=== PATIENT | female | born 1995 | race Caucasian/White ===

== ENCOUNTER 2024-09-04 12:05 | Emergency (ER) | payer OTHER, SELFPAY ==
[2024-09-04 12:09] VITALS: BP 125/81; RESP 16; TEMP 36.9; O2SAT 98; BMI 21.4
--- NOTE | 2024-09-04 12:21 | ED_ITS ---
HPI - Abdominal Pain <Sharlene Castro PA-C - Last Filed: 09/04/24 15:29> General Chief Complaint: Abdominal Pain Stated Complaint: abd pain Time Seen by Provider: 09/04/24 12:20 History of Present Illness HPI narrative: Patient is a very pleasant 28-year-old female presents to the emergency room department today, by herself, drove herself. With an onset of umbilical discomfort and pain that started yesterday that now has radiated down to the right lower quadrant. With some mild nausea, no vomiting. Patient denies recent injury, trauma or fall. No recent upper respiratory symptoms, no recent fever, mild nausea, no vomiting, no diarrhea or constipation. 5/10 right lower quadrant abdominal discomfort increasing pain with coughing, moving, sitting or raising of the legs, and palpation to the right lower quadrant. Decrease in discomfort with rest and lying flat. No treatment prior to being seen here in the emergency department, the patient has not taken anything for pain. No back pain, no urinary frequency, urgency or painful urination. Has had 2 normal vaginal , no intra-abdominal surgery, no major medical problems. Recently had her flu shot last Saturday, no recent COVID shot or booster, no recent Pneumovax. Offered pain medication refused currently not nauseated, offered antinausea medication refused Related Data Allergies Allergy/AdvReac Type Severity Reaction Status Date / Time amoxicillin AdvReac Verified 09/04/24 12:09 Review of Systems <Sharlene Castro PA-C - Last Filed: 09/04/24 15:29> Review of Systems Narrative: Negative except as above Gastrointestinal Comments: Nausea, initial umbilical pain that started yesterday, now radiating into the right lower quadrant. Exam <Sharlene Castro PA-C - Last Filed: 09/04/24 15:29> Initial Vital Signs Initial Vital Signs: Vital Signs Temperature 98.5 F 09/04/24 12:09 Respiratory Rate 16 09/04/24 12:09 Blood Pressure 125/81 09/04/24 12:09 Pulse Oximetry 98 09/04/24 12:09 Oxygen Delivery Method Room Air 09/04/24 12:09 Reviewed Const General: cooperative, healthy appearing, comfortable, well developed, well groomed, No acute distress, No in distress, No anxious, No ill appearing and No intoxicated appearing Nutritional Appearance: average body habitus and well nourished Eyes General: Yes appearance normal, both eyes and all related structures Pupils: PERRL EOM: EOM intact bilaterally Resp Auscultation: clear to auscultation bilaterally, no crackles, no rales, no rhonchi, no wheezes and no vesicular sounds Cardio Rate: regular rate Rhythm: regular rhythm Heart Sounds: S1 normal, S2 normal, no click, no gallops, no murmurs and no rubs Pulses: radial pulses present Other: Rate 72 beats per minute GI Inspection: normal to inspection, no edema, non-distended and no obesity Palpation: soft, No no hepatosplenomegaly, No firm, No guarding, No rigid and tender (Umbilical right lower quadrant) Auscultation: hypoactive bowel sounds Other: Rebound tenderness in the right lower quadrant, Positive blumburgs sign/ Mcburneys Pain with straight leg Skin Other: Warm pink and dry Neuro General: patient alert, patient awake, patient oriented x3, oriented and gait normal Cranial Nerves: CN's II-XI intact bilaterally and PERRL Cognition: normal cognition Speech: speech normal Gait: normal gait Extrem Other: Range of motion, strength, pulses, cap refill preserved in the upper and lower extremities Psych Other: Appearance, mental status, speech, movement, mood, affect, attitude, thought process, judgment are all within normal limits. <Claudio Nascimento MD - Last Filed: 09/15/24 18:37> Initial Vital Signs Initial Vital Signs: Vital Signs Temperature 98.5 F 09/04/24 12:09 Respiratory Rate 16 09/04/24 12:09 Blood Pressure 125/81 09/04/24 12:09 Pulse Oximetry 98 09/04/24 12:09 Oxygen Delivery Method Room Air 09/04/24 12:09 Scores <Sharlene Castro PA-C - Last Filed: 09/04/24 15:29> GCS Citation: 15 Course <Sharlene Castro PA-C - Last Filed: 09/04/24 15:29> Orders Ordered: ED Orders 09/04/24 12:34 CT abdomen pelvis w con Stat 09/04/24 12:45 CBC Auto Diff [Complete Blood Count AUTO DIFF] Stat CMP [Comprehensive Metabolic Panel] Stat Lipase Stat 09/04/24 13:23 US abdomen limited Stat Reevaluation(s) Reevaluation #1: Patient offered pain medication, patient offered antinausea medication, patient refused Vital Signs Vital signs: Vital Signs - 8 hr 09/04/24 12:09 09/04/24 15:08 Temperature 98.5 F Pulse Rate 78 Respiratory Rate 16 18 Blood Pressure 125/81 128/86 Pulse Oximetry 98 100 Oxygen Delivery Method Room Air Room Air Reviewed <Claudio Nascimento MD - Last Filed: 09/15/24 18:37> Orders Ordered: ED Orders 09/04/24 12:34 CT abdomen pelvis w con Stat 09/04/24 12:45 CBC Auto Diff [Complete Blood Count AUTO DIFF] Stat CMP [Comprehensive Metabolic Panel] Stat Lipase Stat 09/04/24 13:23 US abdomen limited Stat Vital Signs Vital signs: Vital Signs - 8 hr 09/04/24 12:09 09/04/24 15:08 Temperature 98.5 F Pulse Rate 78 Respiratory Rate 16 18 Blood Pressure 125/81 128/86 Pulse Oximetry 98 100 Oxygen Delivery Method Room Air Room Air MDM - Abdominal Pain <Sharlene Castro PA-C - Last Filed: 09/04/24 15:29> Lab Data Lab results narrative: Urine test negative Urine dipstick is negative for infection, negative for blood 09/04/24 12:45 09/04/24 12:45 Labs: Lab Results 09/04/24 Range/Units 12:45 WBC 7.1 (4.5-11.0) X10^3/uL RBC 4.23 (4.0-5.2) X10^6/uL Hgb 13.2 (12.0-16.0) g/dL Hct 39.9 (36-46) % MCV 94.3 (80-100) fL MCH 31.2 (26-34) PG MCHC 33.1 (30-36) % RDW 13.3 (11.6-14.8) % Plt Count 191 (150-400) X10^3/uL Neut % (Auto) 61.8 (50-75) % Lymph % (Auto) 26.0 (25-40) % Dyer % (Auto) 9.0 (3-14) % Eos % (Auto) 2.5 (2-4) % Baso % (Auto) 0.7 (0-2) % Neut # (Auto) 4400 (1996-3585) /uL Lymph # (Auto) 1800 (8383-6357) /uL Dyer # (Auto) 600 (0-900) /uL Eos # (Auto) 200 (0-450) /uL Baso # (Auto) 0 (0-100) /uL Sodium 137 (137-145) mmol/L Potassium 3.8 (3.4-5.1) mmol/L Chloride 104 (98-107) mmol/L Carbon Dioxide 26 (22-32) mmol/L BUN 13 (7-17) mg/dL Creatinine 0.62 (0.52-1.04) mg/dL Estimated GFR > 60 (>60) mL/min BUN/Creatinine Ratio 21.0 (6-22) Glucose 94 (70-100) mg/dL Calcium 9.3 (8.4-10.2) mg/dL Total Bilirubin 0.5 (0.2-1.3) mg/dL AST 26 (14-36) IU/L ALT 20 (<35) IU/L Alkaline Phosphatase 47 (38-126) U/L Total Protein 7.4 (6.3-8.2) g/dL Albumin 4.6 (3.5-5.0) g/dL Globulin 2.8 (1.7-4.1) g/dL Albumin/Globulin Ratio 1.6 (1.0-2.8) Lipase 69 (23-300) U/L Point of care testing: Point of Care Testing Test Results Negative Urine Dip Bedside Urine Glucose Negative Bedside Urine Bilirubin - Negative Bedside Urine Ketone - Negative Urine Specific [place] 1.010 Bedside Urine Occult Blood - Negative Bedside Urine pH 7.0 Bedside Urine Protein - Negative Bedside Urine Urobilinogen - Negative Bedside Urine Nitrite - Negative Bedside Urine Leukocytes - Negative Esterase Imaging Data US - abdomen: Radiologist's Impression: [address] [address] Ultrasound Report Signed Patient: Indigo Campos MR#: [id number] : 1995 Acct:[id number] Age/Sex: 28 / F Date of Service: 09/04/24 Loc: ED Accession Number: [id number] Procedure: US abdomen limited Ordering Provider: Sharlene Castro PA-C PROCEDURE: US ABDOMEN LIMITED INDICATIONS: Rebound tenderness RLQ TECHNIQUE: Real-time focused scanning was performed of the abdomen with attention to the appendix, with image documentation. COMPARISON: None. FINDINGS: Appendix visualization: Appendix is not visualized Appendix measurements: Unable to assess Associated findings: Echogenic fat: Absent Appendiceal compressibility: Unable to assess Appendicoliths: Unable to assess Nearby free fluid: Small amount of simple fluid is seen. No complex appearing fluid. Lymphadenopathy: Absent Tenderness on exam: Mild tendinous is noted. IMPRESSION: Appendix is not visualized. No definite secondary sonographic evidence of acute appendicitis is seen. Dictated by: Oliverio Mosley M.D. on 09/04/2024 at 15:11 Approved by: Oliverio Mosley M.D. on 09/04/2024 at 15:11 [facility] Narrative Medical decision making narrative: 28-year-old female onset of umbilical pain started yesterday evening, now radiating to the right lower quadrant. No intra-abdominal surgeries, normal vaginal x2. No recent injury trauma fall, patient has rebound tenderness in the right lower quadrant, some nausea, positive straight leg, pain with coughing, pain with bending, pain with movement. Urine is negative for infection or blood or worrisome for kidney stone test is negative IV will be established CBC normal CMP normal Lipase normal NPO CT abdomen and pelvis with IV contrast rule out any intra-abdominal abnormality Looking for acute appendicitis or peritonitis, or inflammation around the appendix. Unfortunately the CT scan was not able to appreciate the appendix Unfortunately the ultrasound also was not able to appreciate the appendix Spoke with the radiologist due to the fact the patient has a large amount of stool, the radiologist was unable to visualize her appendix has suggestion was an ultrasound limited to evaluate for the appendix or have the patient drink a lot of water and repeat the CT in a while. I have decided to do an ultrasound to evaluate for acute appendicitis. Currently her lab work is completely all normal low suspicion for acute appendicitis however I need to at least be able to evaluate the appendix. Currently at this time the patient has been offered pain medication she refused, she has been offered antinausea medication she refused. Spoke with the attending and let the attending know that I have evaluated the patient, currently at this time I have discussed with the patient the findings of her workup, currently at this time the patient has decided she would like to be discharged home. We have discussed her findings, my feelings on her workup, reasons to present back to the emergency department, we have talked about [id number] supportive therapy as well for her symptoms. And reasons to present back to the emergency room department. Low threshold to return back for evaluation for possible appendicitis. Differential diagnosis; acute cholecystitis, acute cholelithiasis, small-bowel obstruction, diverticulitis, diverticulosis, UTI, pyelonephritis, kidney stone, ovarian cyst, acute appendicitis, no intra-abdominal abnormalities noted on CT scan unknown cause of intra-abdominal pain. <Claudio Nascimento MD - Last Filed: 09/15/24 18:37> Lab Data Labs: Lab Results 09/04/24 Range/Units 12:45 WBC 7.1 (4.5-11.0) X10^3/uL RBC 4.23 (4.0-5.2) X10^6/uL Hgb 13.2 (12.0-16.0) g/dL Hct 39.9 (36-46) % MCV 94.3 (80-100) fL MCH 31.2 (26-34) PG MCHC 33.1 (30-36) % RDW 13.3 (11.6-14.8) % Plt Count 191 (150-400) X10^3/uL Neut % (Auto) 61.8 (50-75) % Lymph % (Auto) 26.0 (25-40) % Dyer % (Auto) 9.0 (3-14) % Eos % (Auto) 2.5 (2-4) % Baso % (Auto) 0.7 (0-2) % Neut # (Auto) 4400 (8564-5131) /uL Lymph # (Auto) 1800 (3539-0604) /uL Dyer # (Auto) 600 (0-900) /uL Eos # (Auto) 200 (0-450) /uL Baso # (Auto) 0 (0-100) /uL Sodium 137 (137-145) mmol/L Potassium 3.8 (3.4-5.1) mmol/L Chloride 104 (98-107) mmol/L Carbon Dioxide 26 (22-32) mmol/L BUN 13 (7-17) mg/dL Creatinine 0.62 (0.52-1.04) mg/dL Estimated GFR > 60 (>60) mL/min BUN/Creatinine Ratio 21.0 (6-22) Glucose 94 (70-100) mg/dL Calcium 9.3 (8.4-10.2) mg/dL Total Bilirubin 0.5 (0.2-1.3) mg/dL AST 26 (14-36) IU/L ALT 20 (<35) IU/L Alkaline Phosphatase 47 (38-126) U/L Total Protein 7.4 (6.3-8.2) g/dL Albumin 4.6 (3.5-5.0) g/dL Globulin 2.8 (1.7-4.1) g/dL Albumin/Globulin Ratio 1.6 (1.0-2.8) Lipase 69 (23-300) U/L Point of care testing: Point of Care Testing Test Results Negative Urine Dip Bedside Urine Glucose Negative Bedside Urine Bilirubin - Negative Bedside Urine Ketone - Negative Urine Specific [place] 1.010 Bedside Urine Occult Blood - Negative Bedside Urine pH 7.0 Bedside Urine Protein - Negative Bedside Urine Urobilinogen - Negative Bedside Urine Nitrite - Negative Bedside Urine Leukocytes - Negative Esterase Discharge Plan Departure Patient Disposition: Home Clinical Impression: Abdominal pain Qualifiers: Abdominal location: right lower quadrant Qualified Code(s): R10.31 - Right lower quadrant pain Activity Restrictions/Additional Instructions: Unfortunately the CT scan did not and was unable to recognize if you have acute appendicitis Unfortunately the ultrasound also was unable to localize or see your appendix However, I think it is reassuring that all of your lab work is completely normal, you do not have a white count, you are not anemic, you do not need a blood transfusion. Your electrolytes, your renal function, your nutritional values, your liver enzymes, your lipase are all normal. Your urine was negative for infection, blood, low suspicion for kidney stone or kidney infection or urinary tract infection Your test was normal Currently what we have talked about and decided it was that your currently going to go home, went to monitor your symptoms. Monitor your nausea, your pain, monitor for fever, weakness, dizziness, We talked about provocative movements you can do the straight leg, internal external rotation, stretching the psoas muscle that is associated with signs and symptoms of acute appendicitis. Pain with jumping that causes irritation to the psoas muscle, rebound tenderness, worsening pain in the umbilical area, worsening nausea, vomiting, changes in your bowel movements. These are all concerning. My suggestion is that you try [id number] Tylenol, ibuprofen for discomfort, heating pad, warm water bottle on the abdomen, you can try topical preparations, arnica, Biofreeze, lidocaine, Salonpas, diclofenac all of these can give localize relief. Trinity diet, plenty of fluids, Upset stomach you can try [id number] Pepto, Pepto-Bismol, Pepcid, Maalox, Zantac, Cintia-[place]. Low suspicion and low threshold to return back to the emergency department if things are not improving, or worsening. Stand Alone Forms: Patient Portal/API ED Sign-out <Claudio Nascimento MD - Last Filed: 09/15/24 18:37> Cosign ED Attending Cosignature Attestation: I was immediately available in the department for consultation. ?This documentation has been reviewed and I agree with assessment and plan. Supervised by Caludio Nascimento MD
--- NOTE | 2024-09-04 12:34 | DI.CT.S_ITS ---
PROCEDURE: CT ABDOMEN PELVIS W CON INDICATIONS: rlq pain TECHNIQUE: After the administration of intravenous contrast, axial sections acquired from the lung bases to the pubic symphysis. Coronal and sagittal reformats were performed. For radiation dose reduction, the following was used: automated exposure control, adjustment of mA and/or kV according to patient size. COMPARISON: None. FINDINGS: Image quality: Diagnostic. Lower Chest: No significant findings. ABDOMEN: Liver: No solid mass. Gallbladder: No radiopaque gallstones or wall thickening. Biliary ducts: No biliary dilation. Pancreas: No ductal dilation. Spleen: Size is within normal limits. Adrenal Glands: No adrenal nodules. Kidneys and Ureters: No hydronephrosis. No solid mass. No complex renal cystic lesion which requires follow up. Stomach and Bowel: Normal colonic caliber, without significant wall thickening. The appendix is not identified. Cannot exclude acute appendicitis. There is paucity of intra-abdominal fat and there is no oral contrast present. Peritoneum: No abnormal intraperitoneal fluid. No free air. Ventral Wall: No significant ventral hernia. Abdominal Nodes: No retroperitoneal or mesenteric adenopathy by size criteria. Vessels: Aorta and inferior vena cava are normal in size. PELVIS: Pelvic Organs: Unremarkable. Bladder: No bladder wall thickening, accounting for underdistention. Pelvic Nodes: No enlarged lymph nodes. Miscellaneous: No inguinal hernias are seen. Bones: No aggressive osseous abnormality. IMPRESSION: Appendix not identified. Cannot exclude acute appendicitis. There is a small amount of fluid present in the pelvis. No acute findings noted. Comment: If clinically continue to suspect acute appendicitis, consider appendiceal ultrasound or repeat study with IV and oral contrast. Comment: Findings were discussed with the referring provider at the time of study dictation. Dictated by: Altaf Mcneil M.D. on 09/04/2024 at 13:10 Approved by: Altaf Mcneil M.D. on 09/04/2024 at 13:44
[2024-09-04 12:53] LABS: Add Manual Diff / Slide Review NO; Basophils Absolute Auto 0 /uL (0-100); Basophils Percent Auto 0.7 % (0-2); Eosinophils Absolute Auto 200 /uL (0-450); Eosinophils Percent Auto 2.5 % (2-4); Hematocrit 39.9 % (36-46); Hemoglobin 13.2 g/dL (12.0-16.0); Lymphocytes Absolute Auto 1800 /uL (1100-4500); Mean Corpuscular HGB Conc 33.1 % (30-36); Mean Corpuscular Hemoglobin 31.2 PG (26-34); Mean Corpuscular Volume 94.3 fL (80-100); Monocytes Absolute Auto 600 /uL (0-900); Neutrophils Absolute Auto 4400 /uL (1500-7000); Neutrophils Percent Auto 61.8 % (50-75); Platelet Count 191 X10^3/uL (150-400); Red Blood Cell Count 4.23 X10^6/uL (4.0-5.2); Red Cell Distribution Width 13.3 % (11.6-14.8); White Blood Cell Count 7.1 X10^3/uL (4.5-11.0)
[2024-09-04 13:03] LABS: Alanine Aminotransferase 20 IU/L (<35); Albumin 4.6 g/dL (3.5-5.0); Albumin Globulin Ratio 1.6 (1.0-2.8); Alkaline Phosphatase 47 U/L (38-126); Aspartate Aminotransferase 26 IU/L (14-36); Bilirubin Total 0.5 mg/dL (0.2-1.3); Blood Urea Nitrogen 13 mg/dL (7-17); Calcium 9.3 mg/dL (8.4-10.2); Carbon Dioxide 26 mmol/L (22-32); Chloride 104 mmol/L (98-107); Estimated Glomerular Filt Rate > 60 mL/min (>60); Globulin 2.8 g/dL (1.7-4.1); Glucose 94 mg/dL (70-100); HEMOLYSIS < 15 (0-50); Lipase 69 U/L (23-300); Potassium 3.8 mmol/L (3.4-5.1); Sodium 137 mmol/L (137-145); Total Protein 7.4 g/dL (6.3-8.2)
--- NOTE | 2024-09-04 13:23 | DI.US.S_ITS ---
PROCEDURE: US ABDOMEN LIMITED INDICATIONS: Rebound tenderness RLQ TECHNIQUE: Real-time focused scanning was performed of the abdomen with attention to the appendix, with image documentation. COMPARISON: None. FINDINGS: Appendix visualization: Appendix is not visualized Appendix measurements: Unable to assess Associated findings: Echogenic fat: Absent Appendiceal compressibility: Unable to assess Appendicoliths: Unable to assess Nearby free fluid: Small amount of simple fluid is seen. No complex appearing fluid. Lymphadenopathy: Absent Tenderness on exam: Mild tendinous is noted. IMPRESSION: Appendix is not visualized. No definite secondary sonographic evidence of acute appendicitis is seen. Dictated by: Oliverio Mosley M.D. on 09/04/2024 at 15:11 Approved by: Oliverio Mosley M.D. on 09/04/2024 at 15:11
[2024-09-04 15:08] VITALS: BP 128/86; PULSE 78; RESP 18; O2SAT 100
== END 2024-09-04 15:41 | disposition home or self-care (01) ==
PROVIDERS: Emergency Provider Physician Assistant
DX: R10.31 Right lower quadrant pain (principal); R11.0 Nausea
CPT/HCPCS: 36415; 74177; 76705; 80053; 81003; 81025; 83690; 85025; 99284; Q9967

== ENCOUNTER 2025-01-22 10:54 | Emergency (ER) | payer OTHER, SELFPAY ==
[2025-01-22 11:04] VITALS: BP 124/76; PULSE 85; RESP 13; TEMP 37.2; O2SAT 100; BMI 22.0
[2025-01-22 11:29] LABS: Add Manual Diff / Slide Review NO; Basophils Absolute Auto 0 /uL (0-100); Basophils Percent Auto 0.7 % (0-2); Eosinophils Absolute Auto 200 /uL (0-450); Eosinophils Percent Auto 2.6 % (2-4); Hemoglobin 13.6 g/dL (12.0-16.0); Lymphocytes Absolute Auto 1300 /uL (1100-4500); Lymphocytes Percent Auto 21.4 % (25-40); Mean Corpuscular HGB Conc 33.1 % (30-36); Mean Corpuscular Hemoglobin 31.4 PG (26-34); Mean Corpuscular Volume 94.9 fL (80-100); Monocytes Absolute Auto 500 /uL (0-900); Monocytes Percent Auto 8.1 % (3-14); Neutrophils Absolute Auto 4200 /uL (1500-7000); Neutrophils Percent Auto 67.2 % (50-75); Platelet Count 197 X10^3/uL (150-400); Red Blood Cell Count 4.32 X10^6/uL (4.0-5.2); Red Cell Distribution Width 13.2 % (11.6-14.8); White Blood Cell Count 6.2 X10^3/uL (4.5-11.0)
[2025-01-22 11:37] LABS: Prothrombin Time 11.4 SECONDS (9.4-12.5)
[2025-01-22 11:40] LABS: PTT Partial Thromboplastin Tim 36 SECONDS (25.1-36.5)
[2025-01-22 11:43] LABS: BUN Creatinine Ratio 19.4 (6-22); Blood Urea Nitrogen 13 mg/dL (7-17); Calcium 9.6 mg/dL (8.4-10.2); Carbon Dioxide 27 mmol/L (22-32); Chloride 104 mmol/L (98-107); Estimated Glomerular Filt Rate > 60 mL/min (>60); Glucose 81 mg/dL (70-100); HEMOLYSIS < 15 (0-50); Potassium 4.6 mmol/L (3.4-5.1); Sodium 139 mmol/L (137-145)
[2025-01-22 12:15] LABS: Bacteria Urine Occasional (0-1); Culture Indicated Urine Cult Not Indicated; RBC Urine 1-5/HPF (0-5/HPF); Squamous Epithelial Cell Urine 0-1 /HPF (0-5/HPF); Urine Volume 10mL (spun); WBC Urine 0-1/HPF (0-5/HPF)
--- NOTE | 2025-01-22 12:18 | ED_ITS ---
HPI - Female Genitourinary <Laurie Browning PA-C - Last Filed: 01/22/25 14:43> General Chief complaint: Vaginal Bleeding Stated complaint: Heavy, Bleeding , Cramping Time Seen by Provider: 01/22/25 11:17 Source: patient Mode of arrival: Ambulatory History of Present Illness HPI Narrative: Ms. Campos is a very pleasant 29-year-old female with no reported past medical history, 2 prior vaginal deliveries, who presents to the emergency department for heavy menstrual bleeding since last night. Patient states ever since she was 10 she has had regular, light periods. In November she had a day on her menstrual cycle with extremely heavy bleeding and passing large clots which she showed me pictures of that were the size of her hand. Her period was normal and light in December however yesterday her regular menstrual periods started again and she had extremely heavy bleeding and clots this morning causing her to change a tampon every 30 minutes. This prompted her emergency department arrival. However at this time she states the bleeding has stopped and it is very light. While she was bleeding earlier today she did feel dizzy. She denies some lower abdominal burning type pain associated with the bleeding. She is and is not concerned for sexually transmitted infections or as her does have a vasectomy. She denies any prior abdominal surgeries, no fevers no chills, no upper abdominal pain dysuria diarrhea or constipation or other concerns. She took Tylenol prior to arrival. Related Data Previous Rx's Medication Instructions Recorded naproxen 500 mg tablet 500 mg PO BID PRN pain #30 tabs 01/22/25 Allergies Allergy/AdvReac Type Severity Reaction Status Date / Time amoxicillin AdvReac Verified 09/04/24 12:09 Review of Systems <Laurie Browning PA-C - Last Filed: 01/22/25 14:43> Review of Systems ROS Unobtainable: All systems reviewed & are unremarkable except as noted in HPI and below Exam <Laurie Browning PA-C - Last Filed: 01/22/25 14:43> Narrative Exam Narrative: GENERAL: 29 year old patient appears stated age. Well-developed patient, in no acute distress. HEAD: Atraumatic. Normocephalic. NECK: Trachea midline. Cervical ROM intact. CARDIOVASCULAR: Regular rate and rhythm. RESPIRATORY: ?Nonlabored respirations. ?Speaking in clear, full sentences. ?Clear to auscultation. Breath sounds equal bilaterally. No wheezes, rales, or rhonchi. ? GASTROINTESTINAL: Abdomen soft, non-tender, nondistended. Normal bowel sounds. PELVIC: Patient gave verbal consent for pelvic exam. 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 Patient has normal external genitalia, less than 1 large swab of blood present in the vaginal vault with no bleeding after bearing down. No tenderness on bimanual exam. EXTREMITIES: No edema or joint tenderness. BACK: Nontender without deformity or crepitance. No flank tenderness. NEURO: AOx3. ?Clear speech. ?Moves all 4 extremities appropriately. SKIN: No rash or erythema of visible areas Initial Vital Signs Initial Vital Signs: Vital Signs Temperature 98.9 F 01/22/25 11:04 Pulse Rate 85 01/22/25 11:04 Respiratory Rate 13 01/22/25 11:04 Blood Pressure 124/76 01/22/25 11:04 Pulse Oximetry 100 01/22/25 11:04 Oxygen Delivery Method Room Air 01/22/25 11:04 <DO Michelle Ware Last Filed: 01/23/25 22:11> Initial Vital Signs Initial Vital Signs: Vital Signs Temperature 98.9 F 01/22/25 11:04 Pulse Rate 85 01/22/25 11:04 Respiratory Rate 13 01/22/25 11:04 Blood Pressure 124/76 01/22/25 11:04 Pulse Oximetry 100 01/22/25 11:04 Oxygen Delivery Method Room Air 01/22/25 11:04 Course <Laurie Browning PA-C - Last Filed: 01/22/25 14:43> Orders Ordered: ED Orders 01/22/25 11:09 Urine Microscopic Stat 01/22/25 11:17 Basic Metabolic Panel Stat Complete Blood Count AUTO DIFF Stat PT [Prothrombin Time INR] Stat PTT Partial Thromboplastin Giovanni Stat Type and Screen Stat 01/22/25 12:30 US pelvic complete Stat Vital Signs Vital signs: Vital Signs - 8 hr 01/22/25 11:04 01/22/25 14:27 Temperature 98.9 F Pulse Rate 85 81 Respiratory Rate 13 14 Blood Pressure 124/76 121/73 Pulse Oximetry 100 100 Oxygen Delivery Method Room Air Room Air <DO Michelle Ware Last Filed: 01/23/25 22:11> Orders Ordered: ED Orders 01/22/25 11:09 Urine Microscopic Stat 01/22/25 11:17 Basic Metabolic Panel Stat Complete Blood Count AUTO DIFF Stat PT [Prothrombin Time INR] Stat PTT Partial Thromboplastin Giovanni Stat Type and Screen Stat 01/22/25 12:30 US pelvic complete Stat Vital Signs Vital signs: Vital Signs - 8 hr 01/22/25 11:04 01/22/25 14:27 Temperature 98.9 F Pulse Rate 85 81 Respiratory Rate 13 14 Blood Pressure 124/76 121/73 Pulse Oximetry 100 100 Oxygen Delivery Method Room Air Room Air MDM - Female Genitourinary <Laurie Browning PA-C - Last Filed: 01/22/25 14:43> Medical Records Attestation: I reviewed the patient's medical records. Medical records narrative: Prior abdominal pain emergency department visit 09/04/2024. Lab Data 01/22/25 11:17 01/22/25 11:17 Labs: Lab Results 01/22/25 01/22/25 Range/Units 11:09 11:17 WBC 6.2 (4.5-11.0) X10^3/uL RBC 4.32 (4.0-5.2) X10^6/uL Hgb 13.6 (12.0-16.0) g/dL Hct 41.0 (36-46) % MCV 94.9 (80-100) fL MCH 31.4 (26-34) PG MCHC 33.1 (30-36) % RDW 13.2 (11.6-14.8) % Plt Count 197 (150-400) X10^3/uL Neut % (Auto) 67.2 (50-75) % Lymph % (Auto) 21.4 L (25-40) % [place] % (Auto) 8.1 (3-14) % Eos % (Auto) 2.6 (2-4) % Baso % (Auto) 0.7 (0-2) % Neut # (Auto) 4200 (7119-5831) /uL Lymph # (Auto) 1300 (1185-0643) /uL [place] # (Auto) 500 (0-900) /uL Eos # (Auto) 200 (0-450) /uL Baso # (Auto) 0 (0-100) /uL PT 11.4 (9.4-12.5) SECONDS INR 1.0 (0.9-1.3) APTT 36 (25.1-36.5) SECONDS Sodium 139 (137-145) mmol/L Potassium 4.6 (3.4-5.1) mmol/L Chloride 104 (98-107) mmol/L Carbon Dioxide 27 (22-32) mmol/L BUN 13 (7-17) mg/dL Creatinine 0.67 (0.52-1.04) mg/dL Estimated GFR > 60 (>60) mL/min BUN/Creatinine Ratio 19.4 (6-22) Glucose 81 (70-100) mg/dL Calcium 9.6 (8.4-10.2) mg/dL Urine RBC 1-5/hpf (0-5/HPF) Urine WBC 0-1/hpf (0-5/HPF) Ur Squamous Epith Cells 0-1 /hpf (0-5/HPF) Urine Bacteria Occasional (0-1) (None) Ur Culture Indicated? Cult not indicated Vol Urine Centrifuged 10ml (spun) Blood Type O Negative Antibody Screen Negative Point of Care Testing Test Results Negative Urine Dip Bedside Urine Glucose Negative Bedside Urine Bilirubin - Negative Bedside Urine Ketone - Negative Urine Specific [place] 1.005 Bedside Urine Occult Blood + Bedside Urine pH 6.0 Bedside Urine Protein - Negative Bedside Urine Urobilinogen - Negative Bedside Urine Nitrite - Negative Bedside Urine Leukocytes - Negative Esterase Imaging Data pelvic US: Radiologist's Impression: PROCEDURE: US PELVIC COMPLETE INDICATIONS: heavy menstrual bleeding and lower abd pain TECHNIQUE: Real-time scanning was performed of the pelvic organs, with image documentation. Additional endovaginal scanning was necessary due to incomplete visualization of the adnexal and endometrial structures by transabdominal scanning. COMPARISON: None. FINDINGS: Uterus: Uterus is anteverted and normal in size at 8.3 x 6.2 x 4.8 cm. The myometrium is homogeneous. The endometrium measures 6.5 mm combined thickness. No fibroids Ovaries: The right ovary measures 3.0 x 2.0 x 1.9 cm, with a calculated ovarian volume of 6.0 cc. The left ovary measures 3.0 x 2.2 x 1.6 cm, with a calculated ovarian volume of 5.5 cc. The ovaries have a normal sonographic appearance. Less than 12 follicles can be seen in each ovary. No adnexal masses are seen. There is intra-ovarian flow bilaterally by duplex. Other: No pathologic free abdominal or pelvic fluid. IMPRESSION: Unremarkable pelvic ultrasound. MDM Narrative Medical decision making narrative: 29-year-old female with no reported past medical history, 2 prior vaginal deliveries, who presents to the emergency department for heavy menstrual bleeding since last night. Differential diagnosis includes but is not limited to miscarriage, dysmenorrhea, heavy menstrual bleeding, uterine fibroid, ovarian cyst, endometrial hyperplasia, cervical polyp, anemia, etc. On exam the patient is in no acute distress, nontoxic-appearing, all vital signs within normal limits. Abdomen soft and nontender. She is currently on her menstrual cycle however it is very heavy passing large clots and she was concerned because this happened in November and she had a full day of passing fist size clots which she did show me pictures of, possible decidual cast. test negative. Labs obtained in triage revealed normal hemoglobin hematocrit. We will proceed with pelvic exam and pelvic ultrasound for further evaluation. She declines need for pain medication at this time. Pelvic exam reveals minimal amount of blood present in the vaginal vault at this time. Pelvic ultrasound normal, no fibroids or endometrial hyperplasia. Discussed diagnosis of menorrhagia with the patient and stressed the importance of follow up with OBGYN for further evaluation. I did prescribe naproxen to use during menstrual cycles. We discussed strict ED return precautions. Patient verbalized understanding all information is agreeable to the plan she is stable for discharge home at this time, and is requesting discharge home. <Devika Rudd, DO - Last Filed: 01/23/25 22:11> Lab Data Labs: Lab Results 01/22/25 01/22/25 Range/Units 11:09 11:17 WBC 6.2 (4.5-11.0) X10^3/uL RBC 4.32 (4.0-5.2) X10^6/uL Hgb 13.6 (12.0-16.0) g/dL Hct 41.0 (36-46) % MCV 94.9 (80-100) fL MCH 31.4 (26-34) PG MCHC 33.1 (30-36) % RDW 13.2 (11.6-14.8) % Plt Count 197 (150-400) X10^3/uL Neut % (Auto) 67.2 (50-75) % Lymph % (Auto) 21.4 L (25-40) % [place] % (Auto) 8.1 (3-14) % Eos % (Auto) 2.6 (2-4) % Baso % (Auto) 0.7 (0-2) % Neut # (Auto) 4200 (7360-3385) /uL Lymph # (Auto) 1300 (3272-0979) /uL [place] # (Auto) 500 (0-900) /uL Eos # (Auto) 200 (0-450) /uL Baso # (Auto) 0 (0-100) /uL PT 11.4 (9.4-12.5) SECONDS INR 1.0 (0.9-1.3) APTT 36 (25.1-36.5) SECONDS Sodium 139 (137-145) mmol/L Potassium 4.6 (3.4-5.1) mmol/L Chloride 104 (98-107) mmol/L Carbon Dioxide 27 (22-32) mmol/L BUN 13 (7-17) mg/dL Creatinine 0.67 (0.52-1.04) mg/dL Estimated GFR > 60 (>60) mL/min BUN/Creatinine Ratio 19.4 (6-22) Glucose 81 (70-100) mg/dL Calcium 9.6 (8.4-10.2) mg/dL Urine RBC 1-5/hpf (0-5/HPF) Urine WBC 0-1/hpf (0-5/HPF) Ur Squamous Epith Cells 0-1 /hpf (0-5/HPF) Urine Bacteria Occasional (0-1) (None) Ur Culture Indicated? Cult not indicated Vol Urine Centrifuged 10ml (spun) Blood Type O Negative Antibody Screen Negative Point of Care Testing Test Results Negative Urine Dip Bedside Urine Glucose Negative Bedside Urine Bilirubin - Negative Bedside Urine Ketone - Negative Urine Specific [place] 1.005 Bedside Urine Occult Blood + Bedside Urine pH 6.0 Bedside Urine Protein - Negative Bedside Urine Urobilinogen - Negative Bedside Urine Nitrite - Negative Bedside Urine Leukocytes - Negative Esterase Discharge Plan Departure Patient Disposition: Home Clinical Impression: Menorrhagia Qualifiers: Menorrhagia type: with regular cycle Qualified Code(s): N92.0 - Excessive and frequent menstruation with regular cycle Instructions: DI for Menorrhagia Activity Restrictions/Additional Instructions: Dear Ms. Campos, Thank you for coming to the emergency department. Today your ultrasound was reassuring that there is no acute abnormality in the pelvis at this time. Your blood work reveals you are not anemic at this time. It is very important for you to follow up with the OBGYN for further evaluation of your heavy menstrual bleeding. Please take the prescribed naproxen during her menstrual cycle and the day before it typically starts. You can call to schedule an appointment with OBGYN Dr. Chairez (on-call provider) at [facility] at [phone], or with any of the OBGYN at [address] at [phone]. Please return to the emergency department if you develop any new or worsening symptoms, bleeding soaking 1 menstrual pad an hour or less, or any other concerns. Please follow up with your primary care doctor within the next 2-3 days for ER follow-up. (If you do not have a PCP you can call [phone]. ?to schedule an appointment with an [facility] Primary Care Provider) IF YOU DEVELOP ANY NEW OR WORSENING SYMPTOMS, RETURN TO THE ER! Please read the attached instructions, they highlight more specific treatments and interventions for you at home. Thank you for letting me participate in your care, Laurie Browning PA-C Prescriptions: New naproxen 500 mg tablet 500 mg PO BID PRN (Reason: pain) Qty: 30 0RF Rx Instructions: Take with food/meal. Referrals: ProviderEduardo [Primary Care Provider] - Stand Alone Forms: Patient Portal/API/Survey ED Sign-out <Devika Rudd, - Last Filed: 01/23/25 22:11> Cosign ED Attending Latonya Attestation: I was available for consultation.
--- NOTE | 2025-01-22 12:30 | DI.US.S_ITS ---
PROCEDURE: US PELVIC COMPLETE INDICATIONS: heavy menstrual bleeding and lower abd pain TECHNIQUE: Real-time scanning was performed of the pelvic organs, with image documentation. Additional endovaginal scanning was necessary due to incomplete visualization of the adnexal and endometrial structures by transabdominal scanning. COMPARISON: None. FINDINGS: Uterus: Uterus is anteverted and normal in size at 8.3 x 6.2 x 4.8 cm. The myometrium is homogeneous. The endometrium measures 6.5 mm combined thickness. No fibroids Ovaries: The right ovary measures 3.0 x 2.0 x 1.9 cm, with a calculated ovarian volume of 6.0 cc. The left ovary measures 3.0 x 2.2 x 1.6 cm, with a calculated ovarian volume of 5.5 cc. The ovaries have a normal sonographic appearance. Less than 12 follicles can be seen in each ovary. No adnexal masses are seen. There is intra-ovarian flow bilaterally by duplex. Other: No pathologic free abdominal or pelvic fluid. IMPRESSION: Unremarkable pelvic ultrasound. We strive to produce accurate, complete, and clear reports of imaging services. To assist us in improving patient care, this report was composed using standard report templates and voice recognition software. Therefore, it may contain abnormal punctuation, insertions and/or omissions. Occasional wrong-word or sound-alike substitutions may occur. Though we review the report and make efforts to correct it, we do recommend that the report be read carefully in proper context to recognize any text inaccuracies. Dictated by: Altaf Mcneil M.D. on 01/22/2025 at 13:51 Approved by: Altaf Mcneil M.D. on 01/22/2025 at 13:53
[2025-01-22 14:27] VITALS: BP 121/73; PULSE 81; RESP 14; O2SAT 100
== END 2025-01-22 14:35 | disposition home or self-care (01) ==
PROVIDERS: Emergency Medicine; Emergency Provider Physician Assistant
DX: N92.0 Excessive and frequent menstruation with regular cycle (principal); R42 Dizziness and giddiness; R10.30 Lower abdominal pain, unspecified
CPT/HCPCS: 36415; 76830; 76856; 80048; 81003; 81015; 81025; 85025; 85610; 85730; 86850; 86900; 86901; 93975; 99282; 99284

== ENCOUNTER → 2025-09-13 17:05 | Outpatient (CLI) | payer OTHER, SELFPAY ==
[2025-09-13 18:38] LABS: Follicle Stimulating Hormone 8.56 mIU/mL; Free T4, Direct Thyroxine 1.25 ng/dL (0.78-2.19)
[2025-09-13 18:52] LABS: Thyroid Stimulating Hormone 1.30 uIU/mL (0.47-4.68)
== END ==
PROVIDERS: Referring Provider Obstetrics & Gynecology; Visit Provider Obstetrics & Gynecology
DX: N93.9 Abnormal uterine and vaginal bleeding, unspecified (principal)
CPT/HCPCS: 36415; 82397; 83001; 83002; 84439; 84443